=== PATIENT | female | born 1960 | race Caucasian/White ===

== ENCOUNTER 2022-11-04 15:03 | Outpatient (CLI) | payer OTHER | END 2022-11-04 15:04 | disposition home or self-care (01) | LOC: CSHULT 15:03 | PROVIDERS: ATTEND Orthopaedic Surgery | DX: M79.89 Other specified soft tissue disorders (principal) ==

== ENCOUNTER 2024-08-23 13:26 | Outpatient (CLI) | payer BC | END 2024-08-23 13:27 | disposition home or self-care (01) | LOC: CSHULT 13:26 | PROVIDERS: ATTEND Internal Medicine | DX: R01.1 Cardiac murmur, unspecified (principal); I51.7 Cardiomegaly; I38 Endocarditis, valve unspecified | CPT/HCPCS: 93306 ==

== ENCOUNTER 2025-03-26 20:15 | Emergency (ER) | payer BC ==
[2025-03-26 22:07] LABS: Anion Gap 10 mmol/L (10-20); BUN (Urea Nitrogen) 9 mg/dL (9.8-20.1); Calc. Creatinine Clearance 0 mL/min (70-130); Carbon Dioxide 27 mmol/L (23-31); Chloride 100 mmol/L (98-107); Potassium 4.0 mmol/L (3.5-5.1); Sodium 133 mmol/L (136-145)
[2025-03-26 22:08] LABS: ALT (SGPT) 13 U/L (Less than 34); AST (SGOT) 30 U/L (11-34); Albumin 4.3 g/dL (3.1-4.5); Alkaline Phosphatase 50 U/L (40-110); Bilirubin, Total 0.4 mg/dL (0.3-1.2); Calcium 9.1 mg/dL (7.8-10.44); Globulin 2.8 g/dL (2.4-3.5); Glucose 110 mg/dL (80-115)
== END 2025-03-26 23:54 | disposition home or self-care (01) ==
LOC: CSHERS 20:15
DX: R09.A2 Foreign body sensation, throat (principal)
CPT/HCPCS: 70492; 80053; 87081; 87430